=== PATIENT | female | born 1970 | race Caucasian/White ===

== ENCOUNTER 2017-10-10 18:35 | Emergency (ER) | payer SELFPAY ==
[~2017-10-10] VITALS: Ht 157.5 cm; Wt 54.0 kg
[2017-10-10 18:40] VITALS: BP 146/93; PULSE 84; RESP 16; TEMP 98.1; O2SAT 99
[2017-10-10] MEDS ORDERED: IBUP-232 PO (19:14)
[2017-10-10] MEDS ORDERED: CLIN150C14 PO (19:14)
--- NOTE | 2017-10-10 19:14 | PD ---
HPI Chief Complaint: Facial Pain or Swelling Time Seen by Provider: 19:10 Travel History International Travel<30 days: No Contact w/Intl Traveler<30days: No Traveled to known affect area: No History of Present Illness HPI 47-year-old female complains of pain and swelling left side of the face. Patient states that the symptoms started yesterday. Patient has history of dental problem on the left side of face in the past. Patient denies fever chills. Patient states the pain is sharp pain started on the left side of face with radiation to left ear. Patient denies any recent injury. On a scale of 1- 10 the pain is a 9. PFSH Past Medical History Cerebrovascular Accident: Yes (TIA) Diminished Hearing: Yes (Left ear) Immunizations Current: No Tetanus Vaccination: > 5 Years Influenza Vaccination: No ?: Not : 2 Para: 2 Tubal Ligation: Yes Social History Alcohol Use: Yes (daily) Tobacco Use: Yes (1 PPD) Substance Use: No (QUIT ONE YEAR AGO, [facility]) Allergies-Medications (Allergen,Severity, Reaction): Coded Allergies: No Known Allergies (Verified Adverse Reaction, Unknown, 10/10/17) Reported Meds & Prescriptions Reported Meds & Active Scripts Active No Active Prescriptions or Reported Medications Review of Systems General / Constitutional: No: Fever Eyes: No: Visual changes HENT: No: Headaches Cardiovascular: No: Chest Pain or Discomfort Respiratory: No: Shortness of Breath Gastrointestinal: No: Abdominal Pain Genitourinary: No: Dysuria Musculoskeletal: No: Pain Skin: No Rash Neurologic: No: Weakness Psychiatric: No: Depression Endocrine: No: Polydipsia Hematologic/Lymphatic: No: Easy Bruising Physical Exam Narrative GENERAL: Well-nourished, well-developed patient. SKIN: Focused skin assessment warm/dry. HEAD: Normocephalic. EYES: No scleral icterus. No injection or drainage. TM: Clear. Throat: Nonerythematous. NECK: Supple, trachea midline. No JVD or lymphadenopathy. CARDIOVASCULAR: Regular rate and rhythm without murmurs, gallops, or rubs. RESPIRATORY: Breath sounds equal bilaterally. No accessory muscle use. GASTROINTESTINAL: Abdomen soft, non-tender, nondistended. MUSCULOSKELETAL: No cyanosis, or edema. BACK: Nontender without obvious deformity. No CVA tenderness. Patient has soft tissue swelling tenderness left mandible area. Data Data Last Documented VS Vital Signs Date Time Temp Pulse Resp B/P (MAP) Pulse Ox O2 Delivery O2 Flow Rate FiO2 10/10/17 18:40 98.1 84 16 146/93 (110) 99 Orders Orders Clindamycin Inj (Cleocin Inj) (10/10/17 19:15) MDM Medical Decision Making Medical Screen Exam Complete: Yes Emergency Medical Condition: Yes Differential Diagnosis Differential diagnosis including dental abscess. Narrative Course 47-year-old female with pain swelling left-sided facial area. Clindamycin 600 mg IM given. Diagnosis Primary Impression: Dental abscess Patient Instructions: General Instructions Additional Instructions: Take medications as directed. Follow-up with a dentist. Med/Other Pt SpecificInfo: Prescription(s) given Scripts Ibuprofen (Ibuprofen) 600 Mg Tab 600 MG PO Q8HR Y for PAIN, #60 TAB 0 Refills Prov: Azar Floyd MD 10/10/17 Clindamycin (Clindamycin) 150 Mg Cap 300 MG PO QID for Infection, #80 CAP 0 Refills Prov: Azar Floyd MD 10/10/17 Disposition: 01 DISCHARGE HOME Condition: Stable Azar Floyd MD Oct 10, 2017 19:14
[2017-10-10] MEDS ORDERED: CLINDAMYCIN PHOS 600 MG/4 ML VIAL IM ONE (19:15)
[2017-10-10 20:04] VITALS: BP 145/83
== END 2017-10-10 20:05 | disposition home or self-care (01) ==
LOC: PHED 18:35
DX: K04.7 Periapical abscess without sinus (principal); F17.200 Nicotine dependence, unspecified, uncomplicated; Z86.73 Personal history of transient ischemic attack (TIA), and cerebral infarction without residual deficits
CPT/HCPCS: 96372